=== PATIENT | female | born 1965 | race African-American/Black ===

== ENCOUNTER 2016-12-18 14:06 | Inpatient (IN) | payer OTHER ==
[~2016-12-18 14:06] MED LIST: ACCUNEB SO1.25 MG/1 INH; ALBUTEROL2.5 MG/0.5 INH; ALDACTONE25 MG PO; ATIVAN0.5 MG PO; BACTRIM DS TAB1 EACH PO; BUDESONIDE EC3 MG INH; CARAFATE 1 GM TA1 G1 PO; CARVEDILOL25 MG PO; CITRATE OF MAG296 ML PO; CLARITIN10 MG PO; COLACE100 MG PO; FLEXERIL PO; HUMALOG100 UNIT/2 SUBQ; HYOSCYAMINE0.125 MG PO; IMDUR 30 MG TAB30 M1 PO; JANUVIA100 MG PO; KEFLEX500 MG PO; LASIX 40 MG TAB40 M2 PO; LASIX 80 MG TAB80 MG PO; LEVAQUIN 250 M250 MG PO; LEVAQUIN 500 M500 M2 PO; LEVEMIR SUBQ; LIPITOR 20 MG T20 M1 PO; LISINOPRIL2.5 MG PO; LO-DOSE ASPIRIN81 M1 PO; LYRICA 75 MG CA75 MG PO; METFORMIN HCL500 MG PO; NASAL SPRAY30 ML NS; NEURONTIN600 MG PO; NITROSTAT0.4 M1 SL; NORCO 5-325 TA1 EACH PO; OMEPRAZOLE 20 M20 M1 PO; PAXIL10 MG; PERCOCET 5-3251 EACH PO; PLAVIX 75 MG TA75 M1 PO; POTASSIUM20 PO; PREDNISONE 20 M20 MG PO; PREDNISONE 5 MG5 M1 PO; PROMETHAZINE-C120 ML PO; SPIRIVA INH; TRAZODONE HCL100 MG PO; ZANAFLEX4 M1 PO; ZOCOR20 MG
[2016-12-18 14:35] VITALS: BP 102/72
== END 2016-12-18 16:10 | disposition left against medical advice (07) | DRG 316 ==
LOC: 2N 14:06
DX: I95.9 Hypotension, unspecified (principal); E11.9 Type 2 diabetes mellitus without complications; J44.9 Chronic obstructive pulmonary disease, unspecified; E78.00 Pure hypercholesterolemia, unspecified; I50.9 Heart failure, unspecified; Z53.21 Procedure and treatment not carried out due to patient leaving prior to being seen by health care provider; I11.0 Hypertensive heart disease with heart failure; Z87.891 Personal history of nicotine dependence; Z95.5 Presence of coronary angioplasty implant and graft; Z95.0 Presence of cardiac pacemaker; Z79.899 Other long term (current) drug therapy
CPT/HCPCS: 10081

== ENCOUNTER 2017-01-14 14:44 | Emergency (ER) | payer OTHER ==
[~2017-01-14] VITALS: Ht 170.2 cm; Wt 54.4 kg
[2017-01-14 15:21] LABS: ABSOLUTE NEUTROPHILS 6.9 thou/uL (1.4-8.2); BASOPHILS 0.9 % (0.0-2.0); HEMATOCRIT 35.9 % (37.0-47.0); HEMOGLOBIN 12.2 gm/dL (12.0-15.0); LYMPHOCYTES 35.2 % (24.0-44.0); MCH 32.9 pg (26.0-34.0); MCV 96.8 fL (80.0-100.0); MONOCYTES 5.8 % (1.0-8.0); PLATELET COUNT 207 thou/uL (150-400); POLYS 56.1 % (36.0-66.0); RBC 3.71 mil/uL (4.20-5.00); RDW 13.3 % (10.5-14.5); WBC 12.2 thou/uL (4.0-11.0)
[2017-01-14 15:22] LABS: MANUAL DIFF NO
[2017-01-14 15:33] LABS: ANION GAP 10 mmol/L (7-16); BUN 53 mg/dL (7-18); CALCIUM 10.7 mg/dL (8.5-10.1); CHLORIDE 102 mmol/L (98-107); CO2 25 mmol/L (21-32); CREATININE 1.9 mg/dL (0.6-1.0); GLUCOSE 120 mg/dL (74-106); POTASSIUM 4.4 mmol/L (3.5-5.1); SODIUM 137 mmol/L (136-145)
[2017-01-14 15:37] LABS: ALBUMIN 4.1 g/dL (3.4-5.0); ALKALINE PHOSPHATASE 65 U/L (46-116); DIRECT BILIRUBIN < 0.1 mg/dL (<0.1-0.3); SGOT 15 U/L (15-37); SGPT 25 U/L (30-65); TOTAL BILIRUBIN 0.4 mg/dL (<0.1-1.0); TOTAL PROTEIN 8.5 g/dL (6.4-8.2)
[2017-01-14 17:34] LABS: URINE BILIRUBIN NEGATIVE (Negative); URINE BLOOD NEGATIVE (Negative); URINE COLOR YELLOW; URINE GLUCOSE-RANDOM* NEGATIVE (Negative); URINE KETONES NEGATIVE (Negative); URINE NITRITE NEGATIVE (Negative); URINE PROTEIN (DIPSTICK) NEGATIVE (Negative); URINE UROBILINOGEN 0.2 E.U./dl (0.2-1.0)
[2017-01-14] MEDS ORDERED: PROMETHAZINE/C118 ML PO (17:58)
[2017-01-14] MEDS ORDERED: FLONASE 0.05%50 MCG NASAL (17:58)
== END 2017-01-14 17:10 | disposition home or self-care (01) ==
LOC: ER 14:44
PROVIDERS: Emergency Medicine
DX: R53.83 Other fatigue (principal); I13.0 Hypertensive heart and chronic kidney disease with heart failure and stage 1 through stage 4 chronic kidney disease, or unspecified chronic kidney disease; E11.22 Type 2 diabetes mellitus with diabetic chronic kidney disease; N18.9 Chronic kidney disease, unspecified; I50.9 Heart failure, unspecified; J44.9 Chronic obstructive pulmonary disease, unspecified; Z79.4 Long term (current) use of insulin; Z95.5 Presence of coronary angioplasty implant and graft; Z95.0 Presence of cardiac pacemaker; Z87.891 Personal history of nicotine dependence

== ENCOUNTER 2017-02-07 11:23 | Emergency (ER) | payer OTHER ==
[~2017-02-07] VITALS: Ht 157.5 cm; Wt 79.4 kg
--- NOTE | ~2017-02-07 | EKG ---
[place] [address] [facility] [place] [address] ELECTROCARDIOGRAM REPORT Name: SANDRA SERRANO [facility] [id number] Admission: 02/07/17 Attend Phys: Discharge: 02/07/17 Date of : 61 Report #: [id number] THIS REPORT FOR: //name// [facility] ED Test Date: 2017-02-07 Test Time: 12:51:20 Pat Name: SANDRA SERRANO Department: Room: Gender: F Secretary To Board Of Commissioners: [id number] : 1965 Requested By: Yuki Zacarias Order Number: [id number] MD: Brian Contreras Measurements Intervals [facility] Rate: 90 P: 61 FL: 161 QRS: -28 QRSD: 95 T: 64 QT: 374 QTc: 458 Interpretive Statements Sinus rhythm Borderline left axis deviation Poor R wave progression No previous for comparison Electronically Signed On 02-08-2017 8:30:44 CDT by Brian Contreras [email or web address] <ELECTRONICALLY SIGNED> By: Brian Contreras MD, [facility] 02/08/17 0830 1251 1251 Brian Contreras MD, FACC /EPI
[~2017-02-07 11:23] MED LIST changes: +FLONASE 0.05%50 MCG NASAL; +PROMETHAZINE/C118 ML PO
[2017-02-07 12:24] LABS: ABSOLUTE NEUTROPHILS 6.9 thou/uL (1.4-8.2); BASOPHILS 1.1 % (0.0-2.0); EOSINOPHILS 1.9 % (0.0-3.0); HEMATOCRIT 36.4 % (37.0-47.0); HEMOGLOBIN 12.2 gm/dL (12.0-15.0); LYMPHOCYTES 30.4 % (24.0-44.0); MCH 32.8 pg (26.0-34.0); MCHC 33.6 g/dL (28.0-37.0); MCV 97.5 fL (80.0-100.0); MONOCYTES 6.3 % (1.0-8.0); PLATELET COUNT 212 thou/uL (150-400); POLYS 60.3 % (36.0-66.0); RBC 3.74 mil/uL (4.20-5.00); RDW 13.5 % (10.5-14.5); WBC 11.4 thou/uL (4.0-11.0)
[2017-02-07 12:25] LABS: MANUAL DIFF NO
[2017-02-07 12:28] LABS: CALCIUM 10.7 mg/dL (8.5-10.1); POTASSIUM 4.6 mmol/L (3.5-5.1)
[2017-02-07 12:48] LABS: URINE BILIRUBIN NEGATIVE (Negative); URINE BLOOD NEGATIVE (Negative); URINE COLOR YELLOW; URINE GLUCOSE-RANDOM* NEGATIVE (Negative); URINE KETONES NEGATIVE (Negative); URINE LEUKOCYTES-REFLEX NEGATIVE (Negative); URINE PROTEIN (DIPSTICK) NEGATIVE (Negative); URINE UROBILINOGEN 0.2 E.U./dl (0.2-1.0)
[2017-02-07] MEDS ORDERED: PROMETHAZINE-C120 ML PO (15:25)
== END 2017-02-07 15:32 | disposition home or self-care (01) ==
LOC: ER 11:23
PROVIDERS: Emergency Medicine
DX: I95.9 Hypotension, unspecified (principal); E86.0 Dehydration; I11.0 Hypertensive heart disease with heart failure; I50.9 Heart failure, unspecified; J44.9 Chronic obstructive pulmonary disease, unspecified; E11.9 Type 2 diabetes mellitus without complications; E78.00 Pure hypercholesterolemia, unspecified; Z95.0 Presence of cardiac pacemaker; Z95.5 Presence of coronary angioplasty implant and graft; Z87.891 Personal history of nicotine dependence; Z79.82 Long term (current) use of aspirin

== ENCOUNTER 2017-05-14 12:33 | Emergency (ER) | payer OTHER ==
[~2017-05-14] VITALS: Ht 157.5 cm; Wt 80.7 kg
[2017-05-14] MEDS ORDERED: NORCO 5-325 TA1 EACH PO (13:38)
== END 2017-05-14 13:59 | disposition home or self-care (01) ==
LOC: ER 12:33
DX: M25.551 Pain in right hip (principal); I10 Essential (primary) hypertension; J44.9 Chronic obstructive pulmonary disease, unspecified; I50.9 Heart failure, unspecified; K31.84 Gastroparesis; Z87.891 Personal history of nicotine dependence; Z95.0 Presence of cardiac pacemaker

== ENCOUNTER 2017-06-13 16:39 | Emergency (ER) | payer OTHER ==
[~2017-06-13] VITALS: Ht 157.5 cm; Wt 78.9 kg
[~2017-06-13 16:39] MED LIST changes: -BUDESONIDE EC3 MG INH; +GLUCOPHAGE1000 MG PO; +SYMBICORT160 MCG/4. INH
[2017-06-13] MEDS ORDERED: BACTROBAN CREAM30 G1 TOP (16:55)
[2017-06-13] MEDS ORDERED: NORCO 5-325 TA1 EACH PO (16:55)
[2017-06-13] MEDS ORDERED: CORTISPORIN OTI10 M2 OTIC (16:55)
== END 2017-06-13 17:01 | disposition home or self-care (01) ==
LOC: ER 16:39
DX: H60.90 Unspecified otitis externa, unspecified ear (principal); H66.90 Otitis media, unspecified, unspecified ear; Z87.891 Personal history of nicotine dependence; Z95.0 Presence of cardiac pacemaker; Z95.5 Presence of coronary angioplasty implant and graft

== ENCOUNTER 2017-09-01 08:14 | Emergency (ER) | payer OTHER ==
[~2017-09-01] VITALS: Ht 157.5 cm; Wt 79.4 kg
[~2017-09-01 08:14] MED LIST changes: -ALDACTONE25 MG PO; +BACTROBAN CREAM30 G1 TOP; +CORTISPORIN OTI10 M2 OTIC; +SPIRONOLACTONE25 MG PO
[2017-09-01] MEDS ORDERED: OSELB75 PO (09:12)
[2017-09-01] MEDS ORDERED: TESSALON PERLE100 MG PO ×2 (09:12→09:13)
[2017-09-01 09:35] VITALS: BP 111/70
[2018-04-10] MEDS ORDERED: ENDOCET 10-3251 EACH PO (11:51)
[2018-04-10] MEDS ORDERED: ENTRESTO 49 MG1 EACH PO (11:52)
[2018-04-10] MEDS ORDERED: TRESIBA FL200 UNIT/1 SUBQ (11:56)
[2018-04-10] MEDS ORDERED: GABAPENTIN800 M1 PO (11:57)
[2018-04-10] MEDS ORDERED: PROAIR HFA8.5 GM INH (15:29)
[2018-04-10] MEDS ORDERED: PLAVIX 75 MG TA75 M1 PO (15:30)
[2018-04-10] MEDS ORDERED: FLEXERIL PO (15:31)
[2018-04-10] MEDS ORDERED: LASIX 80 MG TAB80 MG PO (15:31)
[2018-04-10] MEDS ORDERED: MECLIZINE HCL12.5 MG PO (15:33)
== END 2017-09-01 09:35 | disposition home or self-care (01) ==
LOC: ER 08:14
DX: J11.1 Influenza due to unidentified influenza virus with other respiratory manifestations (principal); J44.9 Chronic obstructive pulmonary disease, unspecified; Z87.891 Personal history of nicotine dependence; Z95.0 Presence of cardiac pacemaker

== ENCOUNTER → 2018-04-14 | Outpatient (CLI) | payer OTHER ==
[~2018-04-14] VITALS: Ht 157.5 cm; Wt 81.6 kg
[~2018-04-14] MED LIST changes: +ENDOCET 10-3251 EACH PO; +ENTRESTO 49 MG1 EACH PO; +GABAPENTIN800 M1 PO; +MECLIZINE HCL12.5 MG PO; +OSELB75 PO; +PROAIR HFA8.5 GM INH; +TESSALON PERLE100 MG PO; +TRESIBA FL200 UNIT/1 SUBQ
--- NOTE | ~2018-04-14 | EKG ---
[address] [address] ELECTROCARDIOGRAM REPORT Name: SANDRA SERRANO [id number] Admission: 04/14/18 Attend Phys: Cam Renteria MD Discharge: Date of : 61 Report #: [id number] THIS REPORT FOR: //name// [facility] Test Date: 2018-04-14 Test Time: 14:52:40 Pat Name: SANDRA SERRANO Department: Room: Gender: F Clinical Biostatistician: RHONDA : 1965 Requested By: Lilo Ghotra Order Number: [id number] MD: Romario Soliz Measurements Intervals [place] Rate: 108 P: 69 [place]: 151 QRS: -29 QRSD: 88 T: 63 QT: 350 QTc: 469 Interpretive Statements Sinus tachycardia Probable left atrial enlargement Borderline left axis deviation Low voltage, precordial leads Electronically Signed On 04-14-2018 15:08:23 CDT by Romario Soliz [email or web address] <ELECTRONICALLY SIGNED> By: Romario Soliz MD 04/14/18 1508 1452 51 Romario Soliz MD /CYRIL
--- NOTE | ~2018-04-14 | PATH ---
[facility] [address] [place] [address] PATHOLOGY RPT PROCEDURE Name: SANDRA SERRANO Room #: REG CL MVannessa.#: [id number] Admission: 04/14/18 Date of : 61 Discharge: Report #: [id number] Path Case #: [id number] LCA Accession Number: [id number] . 01 Material submitted: . POLYP AT RECTUM . 01 Clinical history: . Pre-OP DX: Screening Post-OP DX: Rectal polyp, diverticulosis, interior hemorrhoid . 02 Diagnosis: Polyp, at rectum, endoscopic biopsy: - Hyperplastic polyp. - Negative for dysplasia. (IUV:zane; 04/15/2018) QMS/04/15/2018 . 02 Electronically signed: . Porsha Unger MD, Pathologist NPI- [id number] . 01 Gross description: . Received in formalin labeled "Donato, Sandra, polyp rectum," is a single segment of hernandez soft tissue measuring 0.3 cm in maximum dimension. The specimen is entirely submitted in cassette A1. (TSD; 04/14/2018) TOB/TOB . 02 Pathologist provided ICD-10: K62.1 . 02 CPT . 209245 Specimen Comment: A courtesy copy of this report has been sent to Specimen Comment: [phone], . Specimen Comment: Report sent to and Performed at: [address], [place] [id number] MD Derick Becerra MD Phone: [phone] Performed at: [address] [id number] MD Porsha Unger MD Phone: [phone]
== END | disposition home or self-care (01) ==
LOC: GI 14:18
DX: Z12.11 Encounter for screening for malignant neoplasm of colon (principal); K62.1 Rectal polyp; K57.30 Diverticulosis of large intestine without perforation or abscess without bleeding; K64.8 Other hemorrhoids; I11.0 Hypertensive heart disease with heart failure; I50.9 Heart failure, unspecified; I42.9 Cardiomyopathy, unspecified; E11.9 Type 2 diabetes mellitus without complications; J43.9 Emphysema, unspecified; E78.00 Pure hypercholesterolemia, unspecified; G47.33 Obstructive sleep apnea (adult) (pediatric); Z98.890 Other specified postprocedural states; Z95.5 Presence of coronary angioplasty implant and graft; Z95.810 Presence of automatic (implantable) cardiac defibrillator; Z79.899 Other long term (current) drug therapy; Z87.891 Personal history of nicotine dependence; Z79.4 Long term (current) use of insulin
CPT/HCPCS: 62110; 62900

== ENCOUNTER → 2018-07-25 | Outpatient (CLI) | payer OTHER | LOC: CAT 10:28 | DX: M47.22 Other spondylosis with radiculopathy, cervical region (principal); M47.816 Spondylosis without myelopathy or radiculopathy, lumbar region; M50.122 Cervical disc disorder at C5-C6 level with radiculopathy; M51.26 Other intervertebral disc displacement, lumbar region; M48.02 Spinal stenosis, cervical region; D17.79 Benign lipomatous neoplasm of other sites ==

== ENCOUNTER 2018-10-17 19:16 | Emergency (ER) | payer OTHER ==
[~2018-10-17] VITALS: Ht 157.5 cm; Wt 78.9 kg
[2018-10-17] MEDS ORDERED: BACTRIM DS TAB1 EACH PO (20:31)
[2018-10-17] MEDS ORDERED: HIBICLENS118 ML TOP (20:31)
[2018-10-17 20:41] VITALS: BP 103/70
== END 2018-10-17 20:43 | disposition home or self-care (01) ==
LOC: ER 19:16
DX: L02.214 Cutaneous abscess of groin (principal); L73.2 Hidradenitis suppurativa; I11.0 Hypertensive heart disease with heart failure; I50.9 Heart failure, unspecified; E11.9 Type 2 diabetes mellitus without complications; J44.9 Chronic obstructive pulmonary disease, unspecified; E78.00 Pure hypercholesterolemia, unspecified; G47.30 Sleep apnea, unspecified; Z95.5 Presence of coronary angioplasty implant and graft; Z98.890 Other specified postprocedural states; Z87.891 Personal history of nicotine dependence; Z79.4 Long term (current) use of insulin

== ENCOUNTER → 2018-12-19 | Outpatient (CLI) | payer OTHER ==
[~2018-12-19] VITALS: Ht 157.5 cm; Wt 78.5 kg
[~2018-12-19] MED LIST changes: +HIBICLENS118 ML TOP; +SPIRONOLACTONE25 M1 PO; +TORSEMIDE100 MG PO; +XULTOPHY 100 UNI3 ML SUBQ
[2018-12-19 10:06] LABS: HEMATOCRIT 37.5 % (37.0-47.0); HEMOGLOBIN 12.8 gm/dL (12.0-15.0); MCH 32.7 pg (26.0-34.0); MCHC 34.1 g/dL (28.0-37.0); MCV 96.1 fL (80.0-100.0); RBC 3.9 mil/uL (4.20-5.00); RDW 13.2 % (10.5-14.5); WBC 8.3 thou/uL (4.0-11.0)
[2018-12-19 10:13] LABS: CALCIUM 11.1 mg/dL (8.5-10.1); CREATININE 1.3 mg/dL (0.6-1.0); POTASSIUM 4.4 mmol/L (3.5-5.1)
[2018-12-19 10:20] VITALS: BP 97/72
--- NOTE | 2018-12-19 13:23 | NUR ---
RECEIVED PT FROM MAIL HANDLER EQUIPMENT OPERATOR, DRESSING LEFT CHEST CLEAN DRY INTACT. NO BLEEDING OR HEMATOMA. PT FULLY ALERT AND AWAKE. VSS. NSR ON MONITOR
--- NOTE | 2018-12-19 14:22 | NUR ---
PT ATE LUNCH, FULLY ALERT ABLE TO AMBULATE WITH STEADY GAIT
--- NOTE | 2019-01-02 02:04 | CATHLAB ---
[facility] [address] [place] [address] INVASIVE PROCEDURE REPORT Name: SANDRA SERRANO Room #: REG CL [facility]#: [id number] ������������� Admission: 12/19/18 ������������� Attend Phys: Joe Leger Discharge: ��� ������������� ��� Date of : 61 Date of Service: 01/02/19 0203 �� Report #: [id number] �������� ��������������������������������������������[id number] THIS REPORT FOR: //name// APPROVED REPORT Study performed: 12/19/2018 11:29:20 Event Personnel: , Lilo Malik RN RN, Linh Salazar RN RN, Gilma Izaguirre RTR, DACIA Trammell, Tristan Cerna Monitor Exam: Generator Change for a Dual Chamber Permanent Pacemaker Indications: End of life The patient is a 53 year-old female with a history of cardiomyopathy with reduced ejection fraction and optimize medical regimen. Patient Info Last EF%: 25 Date: Intraoperative Conscious Sedation Fentanyl 100 mcg Versed 4 mg Implanted Devices: ICD- [id number] EVERA MRI S OUS/US DF1: Model #-[id number]; Serial #-[id number] Explanted Devices: ICD [id number] PROTECTA DEVIN GOODMAN US MR: Product #=[id number]; Serial #-[id number] Procedure After explaining the risks, benefits, and alternative options, informed consent was obtained from the patient. The patient was brought to the cardiac catheterization lab and the left chest and shoulder were prepped and draped in the usual fashion. Following institution of sedation and oximetric and elective cardiographic monitoring during the procedure local anesthetic was instilled. His lidocaine without epinephrine. This was instilled along the proposed incision site and subsequently a incision was carried forth. Using sharp and blunt dissection the generator capsule was identified and subsequently the device was delivered. Leads were exchanged with a new device. Pocket was irrigated as was the device and the chest. It was then placed in position and closure ensued in 3 layers with the deep 2 layers being nonabsorbable running locking stitch and the skin closed with non-absorbable 3-0 subcut[address] stitch. [address] [address] INVASIVE PROCEDURE REPORT Name: SANDRA SERRANO Room #: REG [facility]#: [id number] ������������� Admission: 12/19/18 ������������� Attend Phys: Joe Leger Discharge: ��� ������������� ��� Date of : 61 Date of Service: 01/02/19202 �� Report #: [id number] �������� ��������������������������������������������[id number] Complications The patient tolerated the procedure well and there were no complications associated with the procedure. Conclusion 1. Successful generator change involving a dual-chamber ICD Recommendations 1. Routine post generator change protocol ��������������������������������������������� <ELECTRONICALLY SIGNED> ���������������������������������������� By: Joe Root MD ��������������������������������������������� 01/02/19202 2 2 Joe Root MD /INF
--- NOTE | 2019-01-02 02:50 | H ---
[facility] [place] [address] [place] [address] HISTORY AND PHYSICAL Name: SANDRA SERRANO Room #: REG TAE Sridevi#: [id number] Admission: 12/19/18 ������������������ Attend Phys: Joe Root Discharge: ������������������ Date of : 61 Report #: [id number] THIS REPORT FOR: //name// CC: Joe Padron DATE OF SERVICE: 12/19/2018 HISTORY OF PRESENT ILLNESS: This is a very pleasant 53-year-old female patient with history of cardiomyopathy on optimal guideline-directed medical therapy, was evaluated. The patient's ICD has reached ASHLEY and presents now for generator change. She has not had any recent shock from her device, but continues to have decreased ejection fractions on guideline medications. In view of this, she is being admitted for generator change. PAST MEDICAL HISTORY: 1. Hypertension. 2. Cardiomyopathy. 3. Chronic pain syndrome. PHYSICAL EXAMINATION: GENERAL: Well-developed, well-nourished female resting comfortably in no acute distress. HEENT: Normocephalic, atraumatic. Pupils are equal, round, reactive to light and accommodation. Extraocular muscles are intact. Sclerae and conjunctivae are anicteric. NECK: JVD is normal. Carotid upstrokes are bilaterally symmetrical. No bruits are heard. No thyromegaly. No lymphadenopathy. LUNGS: Clear to auscultation. No wheezes, rhonchi or crackles. No CVA tenderness. CARDIAC: Demonstrates a regular rhythm. Normal first and second heart sounds. No ventricular or atrial gallops, no rubs noted. No murmurs. No lifts or heaves, PMI normal. ABDOMEN: Soft, nontender, nondistended. Normal bowel sounds. EXTREMITIES: Without cyanosis, clubbing or edema. Distal pulses are intact. DTR symmetrical. NEUROLOGIC: Cranial nerves 2-12 are grossly normal and symmetrical. PSYCHIATRIC: Alert, oriented with normal affect. SKIN: Warm and dry. IMPRESSION: Cardiomyopathy, on optimal guideline-directed medical therapy with ICD in place at [facility]. In view of this, we are going to proceed with [facility] [address] [place] [address] HISTORY AND PHYSICAL Name: SANDRA SERRANO Room #: REG [facility]#: [id number] Admission: 12/19/18 ������������������ Attend Phys: Joe Root Discharge: ������������������ Date of : 61 Report #: [id number]. The risks, complications and alternatives have been discussed with the patient. She voices understanding and wishes to proceed. ��������������������������������������������� <ELECTRONICALLY SIGNED> ���������������������������������������� By: Joe Root MD ��������������������������������������������� 01/02/19 0250 0215 0246 Joe Root MD /nt
== END | disposition home or self-care (01) ==
LOC: CATH 09:33
PROVIDERS: Internal Medicine
DX: Z45.02 Encounter for adjustment and management of automatic implantable cardiac defibrillator (principal); I42.9 Cardiomyopathy, unspecified; I11.0 Hypertensive heart disease with heart failure; I50.9 Heart failure, unspecified; E11.9 Type 2 diabetes mellitus without complications; J44.9 Chronic obstructive pulmonary disease, unspecified; I25.2 Old myocardial infarction; E78.00 Pure hypercholesterolemia, unspecified; G89.4 Chronic pain syndrome; N28.9 Disorder of kidney and ureter, unspecified; G47.33 Obstructive sleep apnea (adult) (pediatric); E66.09 Other obesity due to excess calories; F17.210 Nicotine dependence, cigarettes, uncomplicated; Z98.890 Other specified postprocedural states; Z95.5 Presence of coronary angioplasty implant and graft; Z82.49 Family history of ischemic heart disease and other diseases of the circulatory system; Z79.4 Long term (current) use of insulin; Z79.899 Other long term (current) drug therapy

== ENCOUNTER → 2019-02-04 | Outpatient (CLI) | payer OTHER ==
--- NOTE | 2019-02-04 11:39 | 2DMMODE ---
[facility] [address] [place] [address] 2 D/M-MODE ECHOCARDIOGRAM Name: SANDRA SERRANO Room #: REG [facility]#: [id number] ������������� Admission: 02/04/19 ������������� Attend Phys: Joe Leger Discharge: ��� ������������� ��� Date of : 61 Date of Service: 02/04/19 1139 �� Report #: [id number] �������� ��������������������������������������������[id number] THIS REPORT FOR: //name// APPROVED REPORT Study performed: 02/04/2019 09:03:05 EXAM: Comprehensive 2D, Doppler, and color-flow Echocardiogram Patient Location: Out-Patient Status: routine BSA: 1.85 HR: 100 bpm BP: 100/70 mmHg Rhythm: Tachycardia Other Information Study Quality: Adequate Indications ISCM, [place], stent, COPD, DM, HTN, ICD. 2D Dimensions RVDd: 35.54 mm IVSd: 9.54 (7-11mm) LVOT Diam: 20.12 (18-24mm) LVDd: 64.10 mm PWd: 9.40 (7-11mm) Ascending Ao: 32.31 (22-36mm) LVDs: 53.46 (25-40mm) Aortic Root: 33.40 mm Volumes Left Atrial Volume (Systole) Single Plane 4CH: 53.12 mL Single Plane 2CH: 43.74 mL Aortic Valve AoV Peak Cesar.: 1.33 m/s AO Peak Gr.: 7.02 mmHg LVOT Max P.06 mmHg LVOT Max V: 1.01 m/s SHAHID Vmax: 2.41 cm2 Pulmonary Valve PV Peak Cesar.: 0.75 m/s PV Peak Gr.: 2.29 mmHg Pulmonary Vein P Vein S: 0.53 m/s P Vein A: 0.27 m/s [facility] [address] [address] 2 D/M-MODE ECHOCARDIOGRAM Name: SANDRA SERRANO Room #: [facility]#: [id number] ������������� Admission: 02/04/19 ������������� Attend Phys: Joe Leger Discharge: ��� ������������� ��� Date of : 61 Date of Service: 02/04/19 1139 �� Report #: [id number] �������� ��������������������������������������������[id number] P Vein D: 0.32 m/s P Vein A Dur.: 58.8 msec P Vein S/D Ratio: 1.66 Tricuspid Valve TR Peak Cesar.: 2.13 m/s RAP Estimate: 5.00 mmHg TR Peak Gr.: 18.15 mmHg PA Pressure: 23.00 mmHg Left Ventricle Left ventricle is moderately dilated. There is normal left ventricular wall thickness. Left ventricular systolic function is severely decreased. LVEF is 20-25%. This study is not technically sufficient to allow evaluation of the LV diastolic function. Right Ventricle The right ventricle is normal size. The right ventricular systolic function is normal. Pacemaker lead is present in the right ventricle. Atria Left atrium is dilated. The right atrium size is normal. Aortic Valve The aortic valve is normal in structure. No aortic regurgitation is present. There is no aortic valvular stenosis. Mitral Valve The mitral valve is normal in structure. Trace mitral regurgitation. Tricuspid Valve The tricuspid valve is normal in structure. Mild tricuspid regurgitation. Estimated PAP is 30mmHg. Pulmonic Valve The pulmonary valve is normal in structure. Trace pulmonic regurgitation. Great Vessels The aortic root is normal in size. The ascending aorta is normal in size. IVC is normal in size and collapses >50% with inspiration. Pericardium There is no pericardial effusion. <Conclusion> [facility] [address] [place] [address] 2 D/M-MODE ECHOCARDIOGRAM Name: SANDRA SERRANO Room #: REG [facility].#: [id number] ������������� Admission: 02/04/19 ������������� Attend Phys: Joe Leger Discharge: ��� ������������� ��� Date of : 61 Date of Service: 02/04/19 1139 �� Report #: [id number] �������� ��������������������������������������������[id number] Left ventricle is moderately dilated. LVEF is 20-25%. The right ventricle is normal size. The right ventricular systolic function is normal. Pacemaker lead is present in the right ventricle. Left atrium is dilated. The aortic valve is normal in structure. The mitral valve is normal in structure. Trace mitral regurgitation. The tricuspid valve is normal in structure. Mild tricuspid regurgitation. Estimated PAP is 30mmHg. The pulmonary valve is normal in structure. Trace pulmonic regurgitation. There is no pericardial effusion. ��������������������������������������������� <ELECTRONICALLY SIGNED> ���������������������������������������� By: Joe Root MD ��������������������������������������������� 02/04/19 1139 1139 1139 Joe Root MD /INF
== END ==
LOC: CV 01-27 07:49
DX: I07.1 Rheumatic tricuspid insufficiency (principal); I11.0 Hypertensive heart disease with heart failure; I50.20 Unspecified systolic (congestive) heart failure; E11.9 Type 2 diabetes mellitus without complications; J44.9 Chronic obstructive pulmonary disease, unspecified; I25.5 Ischemic cardiomyopathy; I25.2 Old myocardial infarction; Z95.810 Presence of automatic (implantable) cardiac defibrillator; Z95.5 Presence of coronary angioplasty implant and graft

== ENCOUNTER → 2019-02-10 | Outpatient (CLI) | payer OTHER | LOC: NUC 06:47 | DX: E83.52 Hypercalcemia (principal); E83.39 Other disorders of phosphorus metabolism; I12.9 Hypertensive chronic kidney disease with stage 1 through stage 4 chronic kidney disease, or unspecified chronic kidney disease; N18.3 Chronic kidney disease, stage 3 (moderate) ==

== ENCOUNTER 2019-03-29 02:25 | Emergency (ER) | payer OTHER ==
[~2019-03-29] VITALS: Ht 160 cm; Wt 75.8 kg
[2019-03-29 02:26] VITALS: BP 133/90
== END 2019-03-29 02:53 | disposition home or self-care (01) ==
LOC: ER 02:25
DX: M79.601 Pain in right arm (principal); E11.9 Type 2 diabetes mellitus without complications; J44.9 Chronic obstructive pulmonary disease, unspecified; G47.30 Sleep apnea, unspecified; I42.9 Cardiomyopathy, unspecified; I50.9 Heart failure, unspecified; I11.0 Hypertensive heart disease with heart failure; Z95.0 Presence of cardiac pacemaker; Z98.890 Other specified postprocedural states; Z87.891 Personal history of nicotine dependence

== ENCOUNTER → 2019-08-03 | Outpatient (CLI) | payer OTHER | LOC: SJCVC 13:02 | DX: Z01.810 Encounter for preprocedural cardiovascular examination (principal); I42.9 Cardiomyopathy, unspecified; I50.20 Unspecified systolic (congestive) heart failure; D49.7 Neoplasm of unspecified behavior of endocrine glands and other parts of nervous system; J44.9 Chronic obstructive pulmonary disease, unspecified; E11.9 Type 2 diabetes mellitus without complications; I25.10 Atherosclerotic heart disease of native coronary artery without angina pectoris; E66.9 Obesity, unspecified; I73.9 Peripheral vascular disease, unspecified; Z95.0 Presence of cardiac pacemaker; Z79.84 Long term (current) use of oral hypoglycemic drugs; Z79.899 Other long term (current) drug therapy ==

== ENCOUNTER → 2019-08-11 | Outpatient (CLI) | payer OTHER | LOC: SJCVC 08-05 14:53 → SJCVCIMAG 08:44 | DX: Z01.818 Encounter for other preprocedural examination (principal); I25.5 Ischemic cardiomyopathy; I42.9 Cardiomyopathy, unspecified; I50.9 Heart failure, unspecified; E78.00 Pure hypercholesterolemia, unspecified; E11.9 Type 2 diabetes mellitus without complications; Z79.4 Long term (current) use of insulin; Z95.0 Presence of cardiac pacemaker ==

== ENCOUNTER → 2019-10-30 | Outpatient (CLI) | payer OTHER | LOC: CAT 09:27 | DX: M51.26 Other intervertebral disc displacement, lumbar region (principal); M48.061 Spinal stenosis, lumbar region without neurogenic claudication; M54.12 Radiculopathy, cervical region ==

== ENCOUNTER → 2019-11-17 | Outpatient (CLI) | payer OTHER ==
[~2019-11-17] VITALS: Ht 160 cm; Wt 75.8 kg
[~2019-11-17] MED LIST changes: +ASA81BEC PO; +COREG6.25 MG PO; +NEURONTIN300 MG PO; +PERCOCET 7.5-31 EACH PO
--- NOTE | 2019-11-18 17:07 | PATH ---
[facility] [address] [place] [address] PATHOLOGY RPT PROCEDURE Name: SANDRA SEWELL Room #: REG Seferino M.R.#: [id number] Admission: 11/17/19 Date of : 61 Discharge: Report #: [id number] Path Case #: [id number] LCA Accession Number: [id number] . 01 Material submitted: . PART A: stomach - BIOPSY ANTRUM R/O H. PYLORI PART B: esophagus - BIOPSY DISTAL ESOPHAGEAL STRICTURE. Modifiers: distal . 01 Clinical history: . Abd cramping, GERD . 02 Diagnosis: A. Stomach "antrum", endoscopic biopsy: - Gastric oxyntic mucosa with mild chronic gastritis and focal superficial hemosiderin deposition. - Negative for interstitial metaplasia, dysplasia, and malignancy. - NEGATIVE for Helicobacter pylori. . B. Esophagus "distal esophageal stricture", endoscopic biopsy: - Esophageal squamous and gastric cardia mucosa with features of chronic esophagitis. - Negative for intestinal metaplasia, dysplasia, and malignancy. . (TAD:jaydon; 11/18/2019) MBR 11/18/2019 1655 Local . 02 Electronically signed: . Alia Martin MD, Pathologist NPI- [id number] . 01 Gross description: . A. The specimen is received in formalin labeled "Sandra Sewell, BX of antrum" and consists of a 2 fragments of pink-hernandez tissue measuring 0.6 x 0.3 x 0.3 cm in aggregate which are entirely submitted in A1. . B. The specimen is received in formalin labeled "Donato Sandra, BX distal esophageal stricture" and consists of a friable fragment of white-hernandez tissue measuring 0.6 x 0.3 x 0.3 cm which is entirely submitted in B1. (EFRAÍN; 11/17/2019) JFQ/JFQ 11/17/2019 1459 Local . 02 Microscopic: . Immunohistochemical stain results: . Helicobacter pylori (block A1) - negative for organisms. (TAD:jaydon; 11/18/2019) [address] [address] PATHOLOGY RPT PROCEDURE Name: SANDRA SEWELL MARCELA Room #: REG CLSeferino Ascencio.Mallorie.#: [id number] Admission: 11/17/19 Date of : 61 Discharge: Report #: [id number] Path Case #: [id number] . 02 Pathologist provided ICD-10: K29.50, K21.9 . 02 CPT . 093900, 185148, R01696 Specimen Comment: A courtesy copy of this report has been sent to [phone], [phone] Specimen Comment: [phone] Specimen Comment: Report sent to / DR ATKINS Performed at: 01 [facility] [address] [place] [id number] MD Derick Becerra MD Phone: [phone] Performed at: 02 [facility] [address] [place] [id number] MD Sage Prieto MD Phone: [phone]
== END | disposition home or self-care (01) ==
LOC: GI 08:00
DX: R13.10 Dysphagia, unspecified (principal); K31.84 Gastroparesis; K22.2 Esophageal obstruction; K29.50 Unspecified chronic gastritis without bleeding; K21.0 Gastro-esophageal reflux disease with esophagitis; K44.9 Diaphragmatic hernia without obstruction or gangrene; K21.9 Gastro-esophageal reflux disease without esophagitis; I11.0 Hypertensive heart disease with heart failure; I50.9 Heart failure, unspecified; E11.9 Type 2 diabetes mellitus without complications; E78.00 Pure hypercholesterolemia, unspecified; I25.10 Atherosclerotic heart disease of native coronary artery without angina pectoris; Z98.890 Other specified postprocedural states; Z79.899 Other long term (current) drug therapy; Z95.810 Presence of automatic (implantable) cardiac defibrillator
CPT/HCPCS: 62110; 62900

== ENCOUNTER → 2020-01-21 | Outpatient (CLI) | payer OTHER | LOC: SJCVC 10:43 | DX: R94.31 Abnormal electrocardiogram [ECG] [EKG] (principal); I42.9 Cardiomyopathy, unspecified; I50.20 Unspecified systolic (congestive) heart failure; E78.5 Hyperlipidemia, unspecified; E11.9 Type 2 diabetes mellitus without complications; J44.9 Chronic obstructive pulmonary disease, unspecified; E66.9 Obesity, unspecified; F17.210 Nicotine dependence, cigarettes, uncomplicated; Z79.4 Long term (current) use of insulin; Z79.899 Other long term (current) drug therapy; Z82.49 Family history of ischemic heart disease and other diseases of the circulatory system ==

== ENCOUNTER 2020-01-22 22:16 | Emergency (ER) | payer OTHER ==
[~2020-01-22] VITALS: Ht 157.5 cm; Wt 71.7 kg
[2020-01-23] MEDS ORDERED: PENICILLIN V P500 MG PO (00:24)
[2020-01-23] MEDS ORDERED: NORCO 5-325 TA1 EAC2 PO (00:24)
[2020-01-23 00:34] VITALS: BP 110/73
== END 2020-01-23 00:36 | disposition home or self-care (01) ==
LOC: ER 22:16
DX: K04.7 Periapical abscess without sinus (principal); E11.9 Type 2 diabetes mellitus without complications; J44.9 Chronic obstructive pulmonary disease, unspecified; E78.00 Pure hypercholesterolemia, unspecified; I11.0 Hypertensive heart disease with heart failure; I50.9 Heart failure, unspecified; Z87.891 Personal history of nicotine dependence; Z79.899 Other long term (current) drug therapy; Z79.82 Long term (current) use of aspirin; Z79.4 Long term (current) use of insulin; Z95.5 Presence of coronary angioplasty implant and graft; Z98.890 Other specified postprocedural states

== ENCOUNTER → 2020-02-02 | Outpatient (CLI) | payer OTHER ==
[~2020-02-02] MED LIST changes: +NORCO 5-325 TA1 EAC2 PO; +PENICILLIN V P500 MG PO
== END ==
LOC: SJCVCIMAG 07:39
PROVIDERS: ATTEND Internal Medicine
DX: I42.9 Cardiomyopathy, unspecified (principal); E78.5 Hyperlipidemia, unspecified; E11.9 Type 2 diabetes mellitus without complications; I50.20 Unspecified systolic (congestive) heart failure; E66.9 Obesity, unspecified; K21.9 Gastro-esophageal reflux disease without esophagitis; F17.210 Nicotine dependence, cigarettes, uncomplicated; Z79.899 Other long term (current) drug therapy

== ENCOUNTER → 2020-03-18 | Outpatient (CLI) | payer OTHER ==
[~2020-03-18] VITALS: Ht 157.5 cm; Wt 76.2 kg
[~2020-03-18] MED LIST changes: +INVOKANA100 MG PO; +LEVEMIR FL100 UNIT/2 SUBQ; +LEXAPRO 10 MG T10 M1 PO; +NITROGLYCERIN0.4 MG SUBLING; +PLAVIX 75 MG TA75 MG PO; +PRILOSEC OTC20 MG PO; +VALIUM5 MG PO
[2020-03-18 09:57] VITALS: BP 117/74
[2020-03-18 10:07] LABS: HEMATOCRIT 40.7 % (37.0-47.0); MCH 33.4 pg (26.0-34.0); MCHC 34.4 g/dL (28.0-37.0); MCV 96.8 fL (80.0-100.0); RBC 4.21 mil/uL (4.20-5.00); WBC 12.5 thou/uL (4.0-11.0)
--- NOTE | 2020-03-18 10:16 | EKG ---
[facility] [place] [address] [place] [address] ELECTROCARDIOGRAM REPORT Name: SANDRA SERRANO [facility] #[facility] [id number] Admission: 03/18/20 Attend Phys: Joe Root Discharge: Date of : 61 Report #: [id number] THIS REPORT FOR: cc: Scar Padron,Shreyas Cruz MD [facility] ~ THIS REPORT FOR: //name// [facility] Test Date: 2020-03-18 Test Time: 09:45:13 Pat Name: SANDRA SERRANO Department: Room: Gender: F Comb Winder: ARMEN : 1965 Requested By: Joe Roto Order Number: [id number] MD: Shreyas Mohamud Measurements Intervals [place] Rate: 92 P: 64 FL: 150 QRS: -33 QRSD: 90 T: 46 QT: 343 QTc: 425 Interpretive Statements Sinus rhythm Abnormal R-wave progression, late transition Left ventricular hypertrophy Minimal J Point elevation, lateral leads Baseline wander in lead(s) V4,V5 Compared to ECG 04/14/2018 14:52:40 Left ventricular hypertrophy now present ST (T wave) deviation now present Sinus tachycardia no longer present Electronically Signed On 03-18-2020 10:16:31 CDT by Shreyas Mohamud [email or web address] <ELECTRONICALLY SIGNED> By: Shreyas Mohamud MD, [facility] 03/18/20 1016 4 4 Shreyas Mohamud MD, [facility] /EPI
[2020-03-18 10:23] LABS: CREATININE 1.8 mg/dL (0.6-1.0)
[2020-03-18 10:24] LABS: CALCIUM 12.2 mg/dL (8.5-10.1)
--- NOTE | 2020-03-30 16:05 | CATHLAB ---
[facility] [place] [address] [place] [address] INVASIVE PROCEDURE REPORT Name: SANDRA SERRANO Room #: REG TAE aMrkMallorieIsabella#: [id number] Admission: 03/18/20 Attend Phys: Joe Root Discharge: Date of : 61 Report #: [id number] THIS REPORT FOR: cc: Scar Padron James A. DO Lammoglia, Francisco J. MD ~ APPROVED REPORT Study performed: 03/18/2020 10:50:59 Patient Details Patient Status: Out-Patient Room #: The patient is a 54 year-old female Event Personnel Joe Root Broom Worker, Gilma Izaguirre RTR, INTERNET WEBMASTER Monitor, Miguel Cordoba RN RN, Sarbjit Irizarry RN RN, Yemi Jones RTR Scrub Procedures Performed Art Access - R femoral artery* Left Heart Cath w/or w/o Coronaries 5047743 [facility] FFR 7536632 FFR 61991 Initial Mod Sed Same Phys/QHP Gr5y 984663 25545 Mod Sed Same Phys/QHP Ea 323023 Hemostasis w/ Mynx, supervision of conscious sedation Indication CardiomyopathyPositive stress test Procedure Narrative The Right Groin^ was infiltrated with 1% Lidocaine subcutaneous anesthesia. A PINNACLE 4FR Sheath #[id number] sheath was inserted into the RFA^. Coronary angiography was performed using coronary diagnostic catheters. The right coronary system was accessed and visualized with a JR4 catheter. The left coronary system was accessed and visualized with a JL4 catheter. The left ventricle was accessed and visualized with a JR4 catheter. Left ventricular/Aortic Valve gradient assessed via catheter pullback. Closure device was deployed with a 6 Fr MYNXGRIP 6/7F #[id number]. The patient tolerated the procedure well and there were no complications associated with the procedure. There was no hematoma. Intraoperative Conscious Sedation Sedation start time: 11:28 Case end Time: 12:14 [facility] [address] [place] [address] INVASIVE PROCEDURE REPORT Name: SANDRA SERRANO Room #: REG CL [facility]#: [id number] Admission: 03/18/20 Attend Phys: Joe Leger Discharge: Date of : 61 Report #: [id number] Versed 3 mg Fluoro Time: 7.46 minutes Dose: DAP 6452.40 cGycm2 882 mGy Contrast Type and Amount: Visipaque 100 ml Coronary Angiography The patient's coronary anatomy is right dominant. Diagnostic Cath Left Main Normal origin caliber bifurcates left anterior descending left circumflex. Is free of high-grade disease. Is short in length LAD Moderate caliber type II vessel which courses in the anterior interventricular sulcus. The side of the first diagonal branch and a prior stenting there is an eccentric 50% lesion noted. The lesion does not appear to be flow-limiting. The first diagonal branch arises with only mild proximal irregularity present as it courses on the anterolateral wall. The LAD proper then continues in the anterior interventricular sulcus giving septal diagonal branches and escorts terminates as a small bifurcating vessel at the apex Diagonal 1 Small caliber vessel without significant high-grade lesion Circumflex Moderate caliber vessel which gives rise to a small insignificant first marginal branch. The vessel then continues on giving rise to a moderate second marginal branch that courses on the lateral aspect of the heart but terminating is a bifurcating vessel free of high-grade disease. The circumflex continues posteriorly terminates as a posterior wall branch after giving rise to a small insignificant caliber posterior wall branch prior to the origin. Mild irregularities are present OM1 Small diminutive size vessel without high-grade disease OM2 Small to moderate caliber vessel coursing on the atrial aspect of the ventricle free of high-grade disease OM3 Insignificant diminutive vessel Right Coronary Normal origin moderate caliber and has a mild to moderate irregularities in the proximal course. Then continues on to the crux of the heart rate gives rise to a small to moderate posterior descending artery and terminates a small posterior wall branch. Prior to the or his pulses having artery there is an eccentric appearing lesion disease not more than 50% stenosis visually. R PDA Small to moderate caliber vessel coursing the posterior interventricular sulcus free of high-grade disease [address] [address] INVASIVE PROCEDURE REPORT Name: ZACHSANDRA MARCELA Room #: REG TODD Laureano#: [id number] Admission: 03/18/20 Attend Phys: Joe Leger Discharge: Date of : 61 Report #: [id number] Left Ventriculography Left Ventriculography was not performed. IVUS Fractional Flow Regan was performed on the Proximal right coronary artery vessel. A 6 Spanish JR4 Guide Catheter was used to engage the Right coronary ostium. A FFR wire was used. Hemodynamics The aortic pressure is 119/86 mmHg with a mean of 102 mmHg. The left ventricular pressure is 134/5 mmHg with a mean of mmHg. The left ventricular end diastolic pressure is 24 mmHg. PCI Technique Lesion Percutaneous coronary intervention was performed on the mid right coronary artery. A LAUNCHER 6FR JR 4 #[id number] Guide Catheter was used to engage the ostium. A Aeris Pressure Wire 175 cm [id number] Interventional Guidewire was used to cross the lesion. COMMENTS PRE FFR=1.00 FFR = .93 PCI Technique Lesion The lesion stenosis prior to intervention was Proximal right coronary artery% with WEI 6 Spanish JR4 flow. A Right coronary Guide Catheter was used to engage the ostium. A FFR wire Interventional Guidewire was used to cross the lesion. Conclusion 1. Coronary disease moderate two-vessel 2. Abnormal hemodynamics with elevated low ventricular diastolic pressure 3. Nonsignificant fractional flow reserve of the proximal RCA Recommendations Cardiac Risk Reduction Program Aggressive Medical Therapy <ELECTRONICALLY SIGNED> By: Joe Root MD 03/30/20 1605 1605 1605 Joe Root MD /INF
== END | disposition home or self-care (01) ==
LOC: CATH 09:20
PROVIDERS: ATTEND Internal Medicine
DX: R07.9 Chest pain, unspecified (principal); I25.10 Atherosclerotic heart disease of native coronary artery without angina pectoris; I42.9 Cardiomyopathy, unspecified; I11.0 Hypertensive heart disease with heart failure; I50.30 Unspecified diastolic (congestive) heart failure; E11.9 Type 2 diabetes mellitus without complications; J44.9 Chronic obstructive pulmonary disease, unspecified; G47.30 Sleep apnea, unspecified; I73.9 Peripheral vascular disease, unspecified; E78.00 Pure hypercholesterolemia, unspecified; K21.9 Gastro-esophageal reflux disease without esophagitis; E66.09 Other obesity due to excess calories; F17.210 Nicotine dependence, cigarettes, uncomplicated; Z82.49 Family history of ischemic heart disease and other diseases of the circulatory system; Z95.0 Presence of cardiac pacemaker; Z98.890 Other specified postprocedural states; Z79.899 Other long term (current) drug therapy; Z79.4 Long term (current) use of insulin

== ENCOUNTER 2020-05-17 14:41 | Emergency (ER) | payer OTHER ==
[~2020-05-17] VITALS: Ht 160 cm; Wt 75.8 kg
[2020-05-17 15:36] LABS: ABSOLUTE NEUTROPHILS 5.8 thou/uL (1.4-8.2); BASOPHILS 0.5 % (0.0-2.0); EOSINOPHILS 0.9 % (0.0-3.0); HEMATOCRIT 35.8 % (37.0-47.0); HEMOGLOBIN 12.1 gm/dL (12.0-15.0); MCH 33.2 pg (26.0-34.0); MCHC 33.9 g/dL (28.0-37.0); MCV 97.8 fL (80.0-100.0); PLATELET COUNT 157 thou/uL (150-400); POLYS 68.6 % (36.0-66.0); RBC 3.66 mil/uL (4.20-5.00); RDW 13.9 % (10.5-14.5); WBC 8.5 thou/uL (4.0-11.0)
[2020-05-17 15:42] LABS: ANION GAP 8 mmol/L (7-16); BUN 32 mg/dL (7-18); CALCIUM 10.8 mg/dL (8.5-10.1); CHLORIDE 100 mmol/L (98-107); CO2 27 mmol/L (21-32); CREATININE 1.8 mg/dL (0.6-1.0); GLUCOSE 269 mg/dL (74-106); POTASSIUM 4.6 mmol/L (3.5-5.1); SODIUM 135 mmol/L (136-145)
[2020-05-17 15:53] LABS: ALBUMIN 3.6 g/dL (3.4-5.0); SGOT 16 U/L (15-37); SGPT 24 U/L (30-65); TOTAL BILIRUBIN 0.4 mg/dL (0.2-1.0); TOTAL PROTEIN 8.1 g/dL (6.4-8.2); TROPONIN-I <0.06 ng/mL (<0.06)
--- NOTE | 2020-05-17 16:01 | EKG ---
[facility] [place] [address] ELECTROCARDIOGRAM REPORT Name: SANDRA SERRAON Room #: [facility].#: [id number] Admission: 05/17/20 Attend Phys: Discharge: Date of : 61 Report #: [id number] THIS REPORT FOR: cc: Scar Padron James A. DO Santiago, Patrick MD [facility] ~ THIS REPORT FOR: //name// [facility] ED Test Date: 2020-05-17 Test Time: 14:46:22 Pat Name: SANDRA SERRANO Department: Room: Gender: F Team Otr Truck Driver: MIKE : 1965 Requested By: Jelena Hernandez Order Number: [id number] MD: Shreyas Mohamud Measurements Intervals [place] Rate: 122 P: 75 MT: 164 QRS: -33 QRSD: 87 T: 65 QT: 297 QTc: 423 Interpretive Statements Sinus tachycardia Left axis deviation Low voltage, precordial leads Compared to ECG 03/18/2020 09:45:13 Low QRS voltage now present Sinus rhythm no longer present ST (T wave) deviation no longer present Electronically Signed On 05-17-2020 16:01:22 ADMINISTRATION VICE PRESIDENT by Shreyas Mohamud [email or web address] <ELECTRONICALLY SIGNED> By: Shreyas Mohamud MD, FACC 05/17/20 1601 1446 1446 Shreyas Mohamud MD, FACC /EPI
[2020-05-17 17:35] VITALS: BP 103/60
== END 2020-05-17 17:36 | disposition home or self-care (01) ==
LOC: ER 14:41
PROVIDERS: Student in an Organized Health Care Education/Training Program
DX: U07.1 COVID-19 (principal); E11.9 Type 2 diabetes mellitus without complications; J44.9 Chronic obstructive pulmonary disease, unspecified; I11.0 Hypertensive heart disease with heart failure; I50.9 Heart failure, unspecified; E78.5 Hyperlipidemia, unspecified; Z95.1 Presence of aortocoronary bypass graft; Z79.01 Long term (current) use of anticoagulants; Z79.4 Long term (current) use of insulin; Z79.82 Long term (current) use of aspirin; Z79.899 Other long term (current) drug therapy

== ENCOUNTER → 2020-06-16 | Outpatient (CLI) | payer OTHER | LOC: CAT 10:00 | PROVIDERS: ATTEND Anesthesiology | DX: M47.812 Spondylosis without myelopathy or radiculopathy, cervical region (principal); M47.896 Other spondylosis, lumbar region; M40.46 Postural lordosis, lumbar region; M77.8 Other enthesopathies, not elsewhere classified; M48.02 Spinal stenosis, cervical region; M51.36 Other intervertebral disc degeneration, lumbar region; M48.05 Spinal stenosis, thoracolumbar region; G89.4 Chronic pain syndrome ==

== ENCOUNTER 2020-08-12 21:31 | Emergency (ER) | payer OTHER ==
[~2020-08-12] VITALS: Ht 160 cm; Wt 76.2 kg
[2020-08-12] MEDS ORDERED: HYDROCODON-ACE1 EAC7 PO (22:54)
[2020-08-12] MEDS ORDERED: DOXYCYCLINE 10100 MG PO (22:54)
[2020-08-12 23:22] VITALS: BP 107/75
== END 2020-08-12 23:19 | disposition home or self-care (01) ==
LOC: ER 21:31
DX: L02.31 Cutaneous abscess of buttock (principal); I11.0 Hypertensive heart disease with heart failure; I50.9 Heart failure, unspecified; J44.9 Chronic obstructive pulmonary disease, unspecified; E11.9 Type 2 diabetes mellitus without complications; E78.5 Hyperlipidemia, unspecified; Z95.0 Presence of cardiac pacemaker; Z87.891 Personal history of nicotine dependence; Z79.01 Long term (current) use of anticoagulants; Z79.4 Long term (current) use of insulin; Z79.82 Long term (current) use of aspirin; Z79.899 Other long term (current) drug therapy

== ENCOUNTER 2020-09-14 15:01 | Emergency (ER) | payer MEDICARE, OTHER ==
[~2020-09-14] VITALS: Ht 157.5 cm; Wt 78.0 kg
[~2020-09-14 15:01] MED LIST changes: +DOXYCYCLINE 10100 MG PO; +HYDROCODON-ACE1 EAC7 PO
[2020-09-14 15:08] VITALS: BP 124/80
[2020-09-14 16:12] LABS: HEMATOCRIT 34.9 % (37.0-47.0); HEMOGLOBIN 11.9 gm/dL (12.0-15.0); MCH 33.3 pg (26.0-34.0); MCV 97.8 fL (80.0-100.0); RBC 3.57 mil/uL (4.20-5.00); RDW 14.9 % (10.5-14.5); WBC 10.6 thou/uL (4.0-11.0)
[2020-09-14 16:19] LABS: CALCIUM 10.9 mg/dL (8.5-10.1); CREATININE 1.4 mg/dL (0.6-1.0); POTASSIUM 3.9 mmol/L (3.5-5.1)
[2020-09-14 16:26] LABS: ALBUMIN 3.8 g/dL (3.4-5.0); TOTAL BILIRUBIN 0.5 mg/dL (0.2-1.0); TOTAL PROTEIN 7.9 g/dL (6.4-8.2)
--- NOTE | 2020-09-14 17:45 | EKG ---
[place] [address] [address] [place] [address] ELECTROCARDIOGRAM REPORT Name: SANDRA SERRANO [facility] [id number] Admission: 09/14/20 Attend Phys: Discharge: Date of : 61 Report #: [id number] [facility] ED Test Date: 2020-09-14 Test Time: 15:32:30 Pat Name: SANDRA SERRANO Department: Room: Gender: F Underwriting Clerk: cruz : 1965 Requested By: Mercy Hercules Order Number: [id number] MD: Romario Soliz Measurements Intervals [place] Rate: 99 P: 60 MI: 150 QRS: -36 QRSD: 88 T: 57 QT: 347 QTc: 446 Interpretive Statements Sinus rhythm Probable left atrial enlargement Left ventricular hypertrophy Probable anterior infarct, old Compared to ECG 05/17/2020 14:46:22 Electronically Signed On 09-14-2020 17:44:47 CHIMNEY SUPERVISOR BRICK by Romario Soliz [email or web address] <ELECTRONICALLY SIGNED> By: Romario Soliz MD 09/14/20 1744 1532 1532 Romario Soliz MD /CYRIL
== END 2020-09-14 16:59 | disposition home or self-care (01) ==
LOC: ER 15:01
PROVIDERS: Nurse Practitioner Family
DX: S40.011A Contusion of right shoulder, initial encounter (principal); S20.01XA Contusion of right breast, initial encounter; R55 Syncope and collapse; I11.0 Hypertensive heart disease with heart failure; I50.9 Heart failure, unspecified; E11.9 Type 2 diabetes mellitus without complications; J44.9 Chronic obstructive pulmonary disease, unspecified; E78.5 Hyperlipidemia, unspecified; Z79.2 Long term (current) use of antibiotics; Z79.899 Other long term (current) drug therapy; Z87.891 Personal history of nicotine dependence; Z79.4 Long term (current) use of insulin; W18.39XA Other fall on same level, initial encounter; Y93.89 Activity, other specified; Y92.89 Other specified places as the place of occurrence of the external cause; Y99.8 Other external cause status

== ENCOUNTER → 2020-10-03 | Outpatient (CLI) | payer MEDICARE, OTHER | LOC: SJCVC 09:57 | PROVIDERS: ATTEND Internal Medicine | DX: I25.10 Atherosclerotic heart disease of native coronary artery without angina pectoris (principal) ==

== ENCOUNTER → 2020-11-01 | Outpatient (CLI) | payer MEDICARE, OTHER | LOC: SJCVC 10:18 | PROVIDERS: ATTEND Internal Medicine | DX: I25.10 Atherosclerotic heart disease of native coronary artery without angina pectoris (principal); E11.51 Type 2 diabetes mellitus with diabetic peripheral angiopathy without gangrene; J42 Unspecified chronic bronchitis; G47.33 Obstructive sleep apnea (adult) (pediatric); I42.9 Cardiomyopathy, unspecified; I50.20 Unspecified systolic (congestive) heart failure; I65.23 Occlusion and stenosis of bilateral carotid arteries; R05 Cough; R53.83 Other fatigue; I25.5 Ischemic cardiomyopathy; I11.0 Hypertensive heart disease with heart failure; I50.9 Heart failure, unspecified; J44.9 Chronic obstructive pulmonary disease, unspecified; E78.5 Hyperlipidemia, unspecified; E66.9 Obesity, unspecified; J45.909 Unspecified asthma, uncomplicated; Z79.4 Long term (current) use of insulin; Z79.899 Other long term (current) drug therapy; Z87.891 Personal history of nicotine dependence; Z68.34 Body mass index [BMI] 34.0-34.9, adult; Z95.0 Presence of cardiac pacemaker ==

== ENCOUNTER 2021-01-16 06:45 | Emergency (ER) | payer OTHER ==
[~2021-01-16] VITALS: Ht 157.5 cm; Wt 76.2 kg
[2021-01-16] MEDS ORDERED: CARVEDILOL12.5 MG PO (07:38)
[2021-01-16 07:39] LABS: ABSOLUTE NEUTROPHILS 4.1 thou/uL (1.4-8.2); EOSINOPHILS 2.5 % (0.0-3.0); HEMATOCRIT 34.6 % (37.0-47.0); HEMOGLOBIN 11.6 gm/dL (12.0-15.0); LYMPHOCYTES 37.4 % (24.0-44.0); MCH 33.4 pg (26.0-34.0); MCHC 33.6 g/dL (28.0-37.0); MCV 99.5 fL (80.0-100.0); MONOCYTES 6.1 % (1.0-8.0); PLATELET COUNT 162 thou/uL (150-400); RBC 3.47 mil/uL (4.20-5.00); RDW 13.8 % (10.5-14.5); WBC 7.7 thou/uL (4.0-11.0)
[2021-01-16] MEDS ORDERED: DULOXETINE HCL30 MG PO (07:39)
[2021-01-16] MEDS ORDERED: NEURONTIN 300M300 M2 PO (07:40)
[2021-01-16] MEDS ORDERED: PERCOCET 10-321 EAC1 PO (07:40)
[2021-01-16 07:41] LABS: ANION GAP 7 mmol/L (7-16); BUN 23 mg/dL (7-18); CALCIUM 10.8 mg/dL (8.5-10.1); CHLORIDE 109 mmol/L (98-107); CO2 25 mmol/L (21-32); CREATININE 1.2 mg/dL (0.6-1.0); GLUCOSE 121 mg/dL (74-106); POTASSIUM 4.2 mmol/L (3.5-5.1); SODIUM 141 mmol/L (136-145)
[2021-01-16 07:51] LABS: ALBUMIN 3.2 g/dL (3.4-5.0); LIPASE 55 U/L (73-393); SGOT 44 U/L (15-37); SGPT 96 U/L (14-59); TOTAL BILIRUBIN 0.4 mg/dL (0.2-1.0); TOTAL PROTEIN 6.8 g/dL (6.4-8.2); TROPONIN-I <0.06 ng/mL (<0.06)
--- NOTE | 2021-01-16 09:33 | EKG ---
[place] [address] [facility] [employer] [address] ELECTROCARDIOGRAM REPORT Name: SANDRA SERRANO [facility] [id number] Admission: 01/16/21 Attend Phys: Discharge: Date of : 61 Report #: [id number] [facility] ED Test Date: 2021-01-16 Test Time: 07:07:23 Pat Name: SANDRA SERRANO Department: Room: Gender: F Senior Market Research Analyst: LOIS : 1965 Requested By: Juan Jose Nathan Order Number: [id number] MD: Shreyas Mohamud Measurements Intervals [place] Rate: 101 P: 73 AL: 162 QRS: -34 QRSD: 87 T: 74 QT: 353 QTc: 458 Interpretive Statements Sinus tachycardia Probable left atrial enlargement Left axis deviation Anterior infarct, old Compared to ECG 09/14/2020 15:32:30 Left-axis deviation now present Sinus rhythm no longer present Left ventricular hypertrophy no longer present Myocardial infarct finding still present Electronically Signed On 01-16-2021 9:32:53 CDT by Shreyas Mohamud [email or web address] <ELECTRONICALLY SIGNED> By: Shreyas Mohamud MD, [facility] 01/16/2132 6 6 Shreyas Mohamud MD, [facility] /EPI
[2021-01-16 12:18] VITALS: BP 99/64
== END 2021-01-16 12:18 | disposition home or self-care (01) ==
LOC: ER 06:45
PROVIDERS: Emergency Medicine
DX: I11.0 Hypertensive heart disease with heart failure (principal); I50.9 Heart failure, unspecified; R06.00 Dyspnea, unspecified; E11.9 Type 2 diabetes mellitus without complications; E78.00 Pure hypercholesterolemia, unspecified; I42.9 Cardiomyopathy, unspecified; J44.9 Chronic obstructive pulmonary disease, unspecified; Z79.82 Long term (current) use of aspirin; Z79.4 Long term (current) use of insulin; Z79.891 Long term (current) use of opiate analgesic; Z79.51 Long term (current) use of inhaled steroids; Z79.899 Other long term (current) drug therapy; Z87.891 Personal history of nicotine dependence

== ENCOUNTER → 2021-01-23 | Outpatient (CLI) | payer OTHER ==
[~2021-01-23] MED LIST changes: +CARVEDILOL12.5 MG PO; +DULOXETINE HCL30 MG PO; +NEURONTIN 300M300 M2 PO; +PERCOCET 10-321 EAC1 PO
== END ==
LOC: SJCVC 10:57
PROVIDERS: ATTEND Internal Medicine
DX: I25.5 Ischemic cardiomyopathy (principal); I50.20 Unspecified systolic (congestive) heart failure; J42 Unspecified chronic bronchitis; I11.0 Hypertensive heart disease with heart failure; E66.9 Obesity, unspecified; G47.33 Obstructive sleep apnea (adult) (pediatric); E78.5 Hyperlipidemia, unspecified; E11.51 Type 2 diabetes mellitus with diabetic peripheral angiopathy without gangrene; I73.9 Peripheral vascular disease, unspecified; I25.10 Atherosclerotic heart disease of native coronary artery without angina pectoris; F17.210 Nicotine dependence, cigarettes, uncomplicated; Z95.0 Presence of cardiac pacemaker; Z79.4 Long term (current) use of insulin; Z79.899 Other long term (current) drug therapy; Z82.49 Family history of ischemic heart disease and other diseases of the circulatory system

== ENCOUNTER → 2021-01-31 | Outpatient (CLI) | payer OTHER | LOC: SJCVCIMAG 08:50 | PROVIDERS: ATTEND Internal Medicine | DX: I07.1 Rheumatic tricuspid insufficiency (principal); I25.5 Ischemic cardiomyopathy; I27.20 Pulmonary hypertension, unspecified; E11.9 Type 2 diabetes mellitus without complications ==

== ENCOUNTER 2021-02-22 22:14 | Emergency (ER) | payer OTHER ==
[~2021-02-22] VITALS: Ht 160 cm; Wt 76.2 kg
[2021-02-23 00:17] LABS: ABSOLUTE NEUTROPHILS 5.5 thou/uL (1.4-8.2); BASOPHILS 0.7 % (0.0-2.0); EOSINOPHILS 2.5 % (0.0-3.0); HEMATOCRIT 36.4 % (37.0-47.0); HEMOGLOBIN 12.1 gm/dL (12.0-15.0); MCH 33.5 pg (26.0-34.0); MCHC 33.4 g/dL (28.0-37.0); MCV 100.3 fL (80.0-100.0); MONOCYTES 5.4 % (1.0-8.0); PLATELET COUNT 163 thou/uL (150-400); POLYS 62.4 % (36.0-66.0); RBC 3.63 mil/uL (4.20-5.00); RDW 14.1 % (10.5-14.5); WBC 8.9 thou/uL (4.0-11.0)
[2021-02-23 00:24] LABS: ANION GAP 8 mmol/L (7-16); BUN 33 mg/dL (7-18); CALCIUM 10.5 mg/dL (8.5-10.1); CHLORIDE 106 mmol/L (98-107); CO2 26 mmol/L (21-32); CREATININE 1.9 mg/dL (0.6-1.0); GLUCOSE 354 mg/dL (74-106); POTASSIUM 4.3 mmol/L (3.5-5.1); SODIUM 140 mmol/L (136-145)
[2021-02-23 00:36] LABS: ALBUMIN 3.3 g/dL (3.4-5.0); LIPASE 52 U/L (73-393); SGOT 22 U/L (15-37); SGPT 39 U/L (14-59); TOTAL BILIRUBIN 0.4 mg/dL (0.2-1.0); TROPONIN-I <0.06 ng/mL (<0.06)
[2021-02-23] MEDS ORDERED: PROMETHAZINE-C473 ML PO (01:17)
[2021-02-23 02:02] VITALS: BP 95/65
--- NOTE | 2021-02-24 09:26 | EKG ---
[place] [address] [facility] [employer] [place] [address] ELECTROCARDIOGRAM REPORT Name: SANDRA SERRANO Room #: [facility]#: [id number] Admission: 02/22/21 Attend Phys: Discharge: 02/23/21 Date of : 61 Report #: [id number] [facility] ED Test Date: 2021-02-22 Test Time: 22:19:13 Pat Name: SANDRA SERRANO Department: Room: Gender: F Travel Coordinator: selma : 1965 Requested By: Juan Jose Nathan Order Number: [id number] MD: Brian Contreras Measurements Intervals [place] Rate: 100 P: 59 VT: 157 QRS: -36 QRSD: 94 T: 54 QT: 348 QTc: 449 Interpretive Statements Sinus tachycardia Probable left atrial enlargement Left axis deviation Anterior infarct, old Compared to ECG 01/16/2021 07:07:23 No significant changes Electronically Signed On 02-24-2021 9:25:49 CDT by Brian Contreras [email or web address] <ELECTRONICALLY SIGNED> By: Brian Contreras MD, [facility] 02/24/21 0925 18 Brian Contreras MD, FACC /EPI
== END 2021-02-23 02:16 | disposition home or self-care (01) ==
LOC: ER 22:14
PROVIDERS: Emergency Medicine
DX: N17.9 Acute kidney failure, unspecified (principal); Z20.822 Contact with and (suspected) exposure to COVID-19; R07.89 Other chest pain; E11.9 Type 2 diabetes mellitus without complications; J44.9 Chronic obstructive pulmonary disease, unspecified; I11.0 Hypertensive heart disease with heart failure; I50.9 Heart failure, unspecified; E78.00 Pure hypercholesterolemia, unspecified; Z79.2 Long term (current) use of antibiotics; Z79.82 Long term (current) use of aspirin; Z79.4 Long term (current) use of insulin; Z79.899 Other long term (current) drug therapy; Z87.891 Personal history of nicotine dependence

== ENCOUNTER 2021-04-17 19:43 | Emergency (ER) | payer OTHER ==
[~2021-04-17] VITALS: Ht 160 cm; Wt 76.2 kg
[~2021-04-17 19:43] MED LIST changes: +PROMETHAZINE-C473 ML PO
[2021-04-17 21:46] VITALS: BP 104/69
== END 2021-04-17 21:57 | disposition home or self-care (01) ==
LOC: ER 19:43
DX: L02.211 Cutaneous abscess of abdominal wall (principal); I11.0 Hypertensive heart disease with heart failure; I50.9 Heart failure, unspecified; E11.9 Type 2 diabetes mellitus without complications; E78.00 Pure hypercholesterolemia, unspecified; Z79.82 Long term (current) use of aspirin; Z79.4 Long term (current) use of insulin; Z79.899 Other long term (current) drug therapy; Z87.891 Personal history of nicotine dependence

== ENCOUNTER → 2021-05-17 | Outpatient (CLI) | payer OTHER | LOC: RAD 10:01 | PROVIDERS: ATTEND Family Medicine | DX: M75.101 Unspecified rotator cuff tear or rupture of right shoulder, not specified as traumatic (principal); M19.011 Primary osteoarthritis, right shoulder; M85.88 Other specified disorders of bone density and structure, other site ==

== ENCOUNTER → 2021-06-28 | Day surgery (SDC) | payer OTHER ==
[~2021-06-28] VITALS: Ht 160 cm; Wt 77.1 kg
[~2021-06-28] MED LIST changes: +NOVOLOG FL100 UNIT/M; +TIZANIDINE HCL4 M2 PO; +TRELEGY ELLIPT1 EACH INH
--- NOTE | ~2021-06-28 | O ---
[facility] [place] [address] OPERATIVE REPORT Name: SANDRA SERRANO Room #: [facility] [place] M.R.#: [id number] Admission: 06/28/21 Attend Phys: Edward Muir Discharge: Date of : 61 Report #: [id number] THIS REPORT FOR: cc: Scar Padron James A. DO VanDenBerghe, Gregory R. MD ~ DATE OF SERVICE: 06/28/2021 PREOPERATIVE DIAGNOSES: Right shoulder pain, rotator cuff tear, glenohumeral joint osteoarthritis, acromioclavicular joint arthrosis, biceps tendinopathy. POSTOPERATIVE DIAGNOSES: Right shoulder pain, large rotator cuff tear, grade 4 chondromalacia of the glenoid, grade 2 chondromalacia of humeral head, long head of the biceps tendon tear, complex labral tear, subacromial bursitis, acromioclavicular joint arthrosis. PROCEDURES PERFORMED: Right shoulder arthroscopy, rotator cuff repair, excision of distal clavicle, extensive debridement, biceps tenotomy. SURGEON: Edward Dumont MD MANAGER MARKET DEVELOPMENT: Connie Valentin PA-C ANESTHESIA: General with preoperative ultrasound-guided interscalene block by Dr. Hannah Sahu. FLUIDS: 400 mL crystalloid. ESTIMATED BLOOD LOSS: Less than 5 mL DESCRIPTION OF PROCEDURE: After proper identification of the patient and the operative site in preoperative holding area, the operative site was signed by myself. Prophylactic antibiotics given. The patient reviewed the anesthetic options with Dr. Sahu and also elected for an interscalene block. After satisfactory ultrasound-guided interscalene block, the patient was brought back to the operative suite after induction of satisfactory general anesthesia per LMA. She was carefully positioned in the left lateral decubitus position. Beanbag and axillary roll were utilized to support the torso. The right shoulder was then sterilely prepped and draped in the usual manner. The limb was placed in 10 pounds of balanced arthroscopic suspension. A posterior portal was established and joint was inflated with an arthroscopic pump set at 40 mmHg. An anterior-superior portal was then created using a spinal needle for localization. Examination of the glenohumeral joint revealed extensive long head of the biceps tendon tear. Biceps tendon when brought into the joint demonstrated high-grade tearing of the bicipital groove. The upper border of the subscapularis was intact as well as the remainder of the subscapularis. [address] [address] OPERATIVE REPORT Name: SANDRA SERRANO Room #: REG [facility] Sridevi#: [id number] Admission: 06/28/21 Attend Phys: Edward Muir Discharge: Date of : 61 Report #: [id number] This was a complete tear of the supraspinatus and infraspinatus and frayed portion of the cuff was debrided from the articular side. The patient demonstrated complex labral tearing and a tendon grasping stitch was placed on the biceps, it was released off the superior labrum, and then the frayed and torn labrum was debrided circumferentially. The glenoid had chondral lesions noted with the anterior-inferior quadrant demonstrating near full-thickness chondral loss with some spotty areas of more fibrous chondral tissue in this region. The anterior-superior labrum demonstrated complex tearing. There was fibrillated chondral tissue and loose chondral flaps noted on the periphery of the glenoid chondral lesion and this area was carefully debrided with a motorized shaver. The more posterior-inferior labrum demonstrated some mild fraying and tearing as well, which was debrided with a motorized shaver. There were two separate areas of chondral thinning on the humeral head, one more inferior and one more superior. Full-thickness rotator cuff tear involving the supraspinatus and infraspinatus was noted. After the articular-sided debridement had been performed, the arthroscope was introduced into the subacromial space and a very thickened subacromial bursa was encountered. It was resected for visualization purposes. There was mild fraying on the undersurface of the coracoacromial arch. This was carefully debrided with a radiofrequency ablator. Acromioclavicular joint arthrosis was noted and a distal clavicle excision was performed with a motorized bur. Approximately 10 mm of bone was resected in this area and a grasper was opened within the acromioclavicular joint, demonstrating the excision. Bony debris was carefully removed. At this point, the patient had a large rotator cuff tear that involved the complete supraspinatus and infraspinatus-type tear and the sharp ring curette and motorized shaver were used to prepare the greater tuberosity. Frayed portion of the cuff was debrided. An [employer]threx SpeedBridge system was utilized with two medial row anchors being inserted. These had the FiberTapes cut and passed individually in a horizontal mattress fashion as well as the sutures. The suture pairs were crossed and lateral row fixation was utilized after the second anchor had been placed more posterior than the first. The #2 FiberWires were passed more in a margin convergence-type manner and within a pattern that reduced the tear as anatomic as possible, and so these #2 FiberWires were used to close some of the defect that was present. They were reduced to the lateral tuberosity and stable to probing. The distal clavicle excision had been performed with a motorized bur and the 10 mm grasper could easily be opened within the joint space. Care was taken to preserve the superior capsular tissues. Portals were closed with simple nylon stitch. Sterile dressing was applied. The patient was then awakened and transferred to the recovery room in a stable condition. The patient will utilize the sling and abduction pillow for 8 weeks postoperatively. A qualified first aid teacher was utilized throughout the entire procedure to aid [address] [address] OPERATIVE REPORT Name: SANDRA SERRANO Room #: [facility] [place] Son[facility].#: [id number] Admission: 06/28/21 Attend Phys: Edward Muir Discharge: Date of : 61 Report #: [id number] in patient limb positioning, visualization with the arthroscope instrument, suture passage as well as closure and sling and dressing application. By: [id number] Edward Dumont MD /nt
[2021-06-28 11:25] VITALS: BP 106/70
[2021-06-28 14:29] VITALS: BP 106/70
--- NOTE | 2021-06-29 07:14 | EKG ---
[place] [address] [facility] [employer] [place] [address] ELECTROCARDIOGRAM REPORT Name: SANDRA SERRANO Room #: REG [facility]#: [id number] Admission: 06/28/21 Attend Phys: Edward Muir Discharge: Date of : 61 Report #: [id number] [facility] Test Date: 2021-06-28 Test Time: 10:27:05 Pat Name: SANDRA SERRANO Department: Room: Gender: F Food And Nutrition Services Assistant: OXANA : 1965 Requested By: Edward Dumont Order Number: [id number] MD: Shreyas Mohamud Measurements Intervals [place] Rate: 82 P: 71 NM: 185 QRS: -29 QRSD: 89 T: 58 QT: 379 QTc: 443 Interpretive Statements Sinus rhythm Borderline left axis deviation Low voltage, precordial leads Consider anterior infarct Compared to ECG 02/22/2021 22:19:13 Low QRS voltage now present Sinus tachycardia no longer present Myocardial infarct finding still present Electronically Signed On 06-29-2021 7:14:03 CHAIN DYER by Shreyas Mohamud [email or web address] <ELECTRONICALLY SIGNED> By: Shreyas Mohamud MD, [facility] 06/29/21 0714 1027 1027 Shreyas Mohamud MD, [facility] /EPI
== END | disposition home or self-care (01) ==
LOC: OR 09:16
PROVIDERS: ATTEND Orthopaedic Surgery Sports Medicine
DX: M25.511 Pain in right shoulder (principal); M75.101 Unspecified rotator cuff tear or rupture of right shoulder, not specified as traumatic; M19.011 Primary osteoarthritis, right shoulder; M94.211 Chondromalacia, right shoulder; S46.111A Strain of muscle, fascia and tendon of long head of biceps, right arm, initial encounter; S43.491A Other sprain of right shoulder joint, initial encounter; M75.51 Bursitis of right shoulder; I11.0 Hypertensive heart disease with heart failure; I50.9 Heart failure, unspecified; E78.00 Pure hypercholesterolemia, unspecified; E11.9 Type 2 diabetes mellitus without complications; I42.9 Cardiomyopathy, unspecified; K21.9 Gastro-esophageal reflux disease without esophagitis; J43.9 Emphysema, unspecified; F17.210 Nicotine dependence, cigarettes, uncomplicated; Z98.890 Other specified postprocedural states; Z79.899 Other long term (current) drug therapy; Z95.0 Presence of cardiac pacemaker; Z20.822 Contact with and (suspected) exposure to COVID-19; X58.XXXA Exposure to other specified factors, initial encounter; Y93.89 Activity, other specified; Y92.89 Other specified places as the place of occurrence of the external cause; Y99.8 Other external cause status
CPT/HCPCS: 50010; 50101; 50172; 50386; 50403; 50597; 50935; 51320; 51847; 52001; 52313; 53610; 56527; 56530; 57103; 58575; 58576; 58577; 58589; 58682; 62110; 62900; 64043; 65060; 70005

== ENCOUNTER 2021-06-29 06:13 | Emergency (ER) | payer OTHER ==
[~2021-06-29] VITALS: Ht 160 cm; Wt 77.1 kg
[2021-06-29 06:51] VITALS: BP 114/72
[2021-06-29 06:52] LABS: ABSOLUTE NEUTROPHILS 7.6 thou/uL (1.4-8.2); BASOPHILS 1.1 % (0.0-2.0); EOSINOPHILS 1.4 % (0.0-3.0); HEMATOCRIT 35.4 % (37.0-47.0); HEMOGLOBIN 11.9 gm/dL (12.0-15.0); LYMPHOCYTES 16.6 % (24.0-44.0); MCH 33.7 pg (26.0-34.0); MCHC 33.7 g/dL (28.0-37.0); MCV 100.1 fL (80.0-100.0); MONOCYTES 6.4 % (1.0-8.0); PLATELET COUNT 154 thou/uL (150-400); POLYS 74.5 % (36.0-66.0); RBC 3.54 mil/uL (4.20-5.00); RDW 13.5 % (10.5-14.5); WBC 10.2 thou/uL (4.0-11.0)
[2021-06-29 07:00] LABS: CALCIUM 10.5 mg/dL (8.5-10.1); CREATININE 1.5 mg/dL (0.6-1.0); POTASSIUM 5.6 mmol/L (3.5-5.1)
[2021-06-29 07:06] LABS: ALBUMIN 3.6 g/dL (3.4-5.0); TOTAL PROTEIN 8.1 g/dL (6.4-8.2)
[2021-06-29 07:13] LABS: TOTAL BILIRUBIN 0.7 mg/dL (0.2-1.0)
--- NOTE | 2021-06-29 07:14 | EKG ---
[facility] [place] [address] ELECTROCARDIOGRAM REPORT Name: SANDRA SERRANO Room #: REG [facility]#: [id number] Admission: 06/29/21 Attend Phys: Discharge: Date of : 61 Report #: [id number] [facility] ED Test Date: 2021-06-29 Test Time: 06:46:21 Pat Name: SANDRA SERRANO Department: Room: Gender: F Train Brakeman: deepali : 1965 Requested By: Scar Mitchell Order Number: [id number] MD: Shreyas Mohamud Measurements Intervals [place] Rate: 96 P: 77 PA: 182 QRS: -33 QRSD: 86 T: 65 QT: 345 QTc: 436 Interpretive Statements Sinus rhythm Probable left atrial enlargement Left axis deviation Low voltage, precordial leads Consider anterior infarct Baseline wander in lead(s) II,III,aVR,aVF Compared to ECG 06/28/2021 10:27:05 No significant changes Electronically Signed On 06-29-2021 7:14:35 CHANGE MANAGEMENT DIRECTOR by Shreyas Mohamud [email or web address] <ELECTRONICALLY SIGNED> By: Shreyas Mohamud MD, [facility] 06/29/21713 5 5 Shreyas Mohamud MD, [facility] /EPI
== END 2021-06-29 10:03 | disposition home or self-care (01) ==
LOC: ER 06:13
PROVIDERS: Emergency Medicine
DX: M25.511 Pain in right shoulder (principal); E87.5 Hyperkalemia; E11.9 Type 2 diabetes mellitus without complications; J44.9 Chronic obstructive pulmonary disease, unspecified; I11.0 Hypertensive heart disease with heart failure; I50.9 Heart failure, unspecified; E78.00 Pure hypercholesterolemia, unspecified; Z87.891 Personal history of nicotine dependence; Z79.899 Other long term (current) drug therapy; Z79.82 Long term (current) use of aspirin; Z98.890 Other specified postprocedural states

== ENCOUNTER 2021-07-22 13:22 | Inpatient (IN) | payer OTHER ==
[~2021-07-22] VITALS: Ht 160 cm; Wt 76.7 kg
[2021-07-22 13:23] VITALS: BP 122/74
[2021-07-22 14:23] LABS: ABSOLUTE NEUTROPHILS 6.8 thou/uL (1.4-8.2); BASOPHILS 0.5 % (0.0-2.0); EOSINOPHILS 2.1 % (0.0-3.0); HEMATOCRIT 30.3 % (37.0-47.0); HEMOGLOBIN 10.4 gm/dL (12.0-15.0); LYMPHOCYTES 26.4 % (24.0-44.0); MCH 33.8 pg (26.0-34.0); MCHC 34.2 g/dL (28.0-37.0); MCV 98.8 fL (80.0-100.0); MONOCYTES 5.5 % (1.0-8.0); PLATELET COUNT 180 thou/uL (150-400); POLYS 65.5 % (36.0-66.0); RBC 3.07 mil/uL (4.20-5.00); RDW 13.5 % (10.5-14.5); WBC 10.3 thou/uL (4.0-11.0)
[2021-07-22 14:30] LABS: CALCIUM 10.8 mg/dL (8.5-10.1); CREATININE 2.1 mg/dL (0.6-1.0); POTASSIUM 5.3 mmol/L (3.5-5.1)
[2021-07-22 14:36] LABS: ALBUMIN 3.4 g/dL (3.4-5.0); MAGNESIUM 1.9 mg/dL (1.8-2.4); TOTAL BILIRUBIN 0.3 mg/dL (0.2-1.0); TOTAL PROTEIN 7.5 g/dL (6.4-8.2)
[2021-07-22 18:32] VITALS: BP 101/63
[2021-07-22 20:00] VITALS: BP 108/67
[2021-07-23 04:00] VITALS: BP 115/76
[2021-07-23 06:09] LABS: HEMATOCRIT 28.2 % (37.0-47.0); HEMOGLOBIN 9.3 gm/dL (12.0-15.0); MCHC 32.9 g/dL (28.0-37.0); MCV 100.5 fL (80.0-100.0); RBC 2.81 mil/uL (4.20-5.00); RDW 13.4 % (10.5-14.5); WBC 7.6 thou/uL (4.0-11.0)
[2021-07-23 06:47] LABS: CALCIUM 10.8 mg/dL (8.5-10.1); CREATININE 1.5 mg/dL (0.6-1.0); POTASSIUM 4.6 mmol/L (3.5-5.1)
[2021-07-23 08:37] VITALS: BP 98/62
[2021-07-24 03:23] VITALS: BP 98/62
--- NOTE | 2021-07-24 03:27 | NUR ---
PT AMBULATING TO BATHROOM INDEPENDENTLY AND IS TOLERATING WELL. PERCOCET PROVIDING PAIN RELIEF. PLAN FOR EGD AND COLONOSCOPY 07/24. RESTING COMFORTABLY. NO NEEDS VOICED. CALL LIGHT WITHIN REACH. FRQUENT OBSERVATION.
--- NOTE | 2021-07-24 08:03 | NUR ---
NIGHT RN REPORTED THAT PT IS REFUSING SLIDING SCALE INSULIN. TRIED TO TALK TO PT ABOUT INSULOIN THIS AM AND SHE STARTED CURSING AT ME AND CALLED ME A MOTHER FUCKER. I INFORMED PT THAT I WOULD RETURN TO ROOM LATER AND LET HER CALM DOWN. WILL CONTINUE TO ASSESS.
[2021-07-24 11:33] LABS: HEMOGLOBIN 8.7 gm/dL (12.0-15.0); MCH 33.3 pg (26.0-34.0); MCHC 33.6 g/dL (28.0-37.0); MCV 99.1 fL (80.0-100.0); RBC 2.62 mil/uL (4.20-5.00)
[2021-07-24 11:43] LABS: CALCIUM 10.9 mg/dL (8.5-10.1); CREATININE 1.2 mg/dL (0.6-1.0); POTASSIUM 4.1 mmol/L (3.5-5.1)
--- NOTE | 2021-07-24 13:01 | NUR ---
PT WAS ABLE TO CALM DOWN TODAY HOWEVER BECAME UPSET WHEN SHE WAS INFORMED THAT HER GI PROCEDURE WOULD NOT HAPPEN UNTIL LATER THIS AFTERNOON. ALICJA CUADRAPOLITICAL SCIENCE FACULTY MEMBER CAME TO PT'S ROOM TO EXPLAIN WHY PROCEDURE DID NOT HAPPEN THIS AM SHE WANTED. PT LEFT UNIT FOR GI PROCEDURE AT 1310 TODAY.
--- NOTE | 2021-07-24 16:57 | NUR ---
SAMAN REPORTR GIVEN TO 4S RN AT NURSING UNIT.
--- NOTE | 2021-07-24 17:39 | NUR ---
PAGED DR. KASPER AND DR. DINH TO SEE IF PT CAN HAVE A DIET ORDER S/P GI PROCEDURE.
[2021-07-24 21:35] VITALS: BP 126/66
--- NOTE | 2021-07-24 21:50 | NUR ---
PATIENT WAS AGGITATED AT START OF SHIFT SINCE HER HOME MEDS HAD NOT BEEN CONTINUED. THIS RN REACHED OUT TO THE ONCALL POWERPLANT OPERATOR TO RESTART THEM. MEDS REVIEWED AND RESTARTED BY POWERPLANT OPERATOR. THIS RN WENT TO GIVE MEDS SCHEDULED AT THIS TIME PT INFORMED ME THAT SHE HAS ALREADY TAKEN THEN. WHEN QUESTIONED WHERE SHE GOT THEM SHE STATED HER "S.O. GAVE THEM TO HER EARLIER SINCE NO ONE DOES ANYTHING". PT DENIES HAVING OTHER MEDICATION ON HER. PT EDUCATED ABOUT HOSPITAL POLICY AND POTENTIAL CONSIQUENCES OF MIXING MEDICATION- NO EVIDENCE OF LEARNING. MEDS MARKED NOT GIVEN ON EMAR WITH A NOTE
[2021-07-25 04:12] LABS: HEMATOCRIT 24.3 % (37.0-47.0); HEMOGLOBIN 8.2 gm/dL (12.0-15.0); MCH 33.7 pg (26.0-34.0); MCHC 33.9 g/dL (28.0-37.0); MCV 99.6 fL (80.0-100.0); RBC 2.44 mil/uL (4.20-5.00); RDW 13.3 % (10.5-14.5)
[2021-07-25 08:02] VITALS: BP 112/67
--- NOTE | 2021-07-25 10:55 | NUR ---
ASSUMED CARE OF PT AT 0700 THIS MORNING. PT IS A/OX4 AND STATED SHE WAS ANXIOUS AND NEEDS HER DIAZEPAM. PT'S HGB WAS AT 8.2 AND NOTIFIED GI ABOUT THE DROP. ASSESSMENTS NOTED IN CHART AND OTHERWISE UNREMARKABLE. PT IS UP INDEP AND HAS NO NEED FOR FALL PRECAUTIONS. CALL LIGHT AND OTHER NEEDS ARE IN REACH. MEDS AND TX GIVEN NEEDED AND SCHEDULED. PT IS WANTING TO BE DISCHARGED TODAY AND WAITING FOR DR. DINH TO CHECK ON PT. GI WOULD LIKE PT TO STAY ONE MORE DAY. WILL CONTINUE TO MONITOR AND NOTE ANY CHANGES.
--- NOTE | 2021-07-25 13:18 | NUR ---
ORDERS RECEIVED FOR PT EVAL AND TREAT. Pt HAS BEEN UP AD JUANA IN ROOM. WAS SITTING AT EOB UPON PT ARRIVAL. DECLINED NEED FOR ACUTE PT AT THIS TIME. HAS HELP AT HOME IF NEEDED AT D/C. PLAN IS TO RETURN TO OP PT HERE FOR R ROTATOR CUFF WHICH SHE HAD REPAIRED ON 06/28/21. NO ACUTE PT CONCERNS. ACUTE PT TO SIGN OFF.
[2021-07-25] MEDS ORDERED: PROMETHAZINE-C473 ML PO (13:30)
[2021-07-25 13:44] VITALS: BP 112/67
[2021-07-25] MEDS ORDERED: GUAIFEN-CODEINE10 ML PO (17:21)
== END 2021-07-25 14:34 | disposition home or self-care (01) | DRG 378 ==
LOC: ER 13:22 → 4S 17:03 → EROBS 17:03 → 4S 07-24 16:41
PROVIDERS: Emergency Medicine; Nurse Practitioner; ADMIT Internal Medicine; ATTEND Internal Medicine
PROC: 0W3P8ZZ Control Bleeding in Gastrointestinal Tract, Via Natural or Artificial Opening Endoscopic (ICD-10-PCS; principal; 2021-07-22)
PROC: 0DJ08ZZ Inspection of Upper Intestinal Tract, Via Natural or Artificial Opening Endoscopic (ICD-10-PCS; principal; 2021-07-22)
DX: K55.21 Angiodysplasia of colon with hemorrhage (principal); D62 Acute posthemorrhagic anemia; I42.9 Cardiomyopathy, unspecified; N17.9 Acute kidney failure, unspecified; K57.31 Diverticulosis of large intestine without perforation or abscess with bleeding; J44.9 Chronic obstructive pulmonary disease, unspecified; E11.9 Type 2 diabetes mellitus without complications; I50.9 Heart failure, unspecified; E78.00 Pure hypercholesterolemia, unspecified; F17.210 Nicotine dependence, cigarettes, uncomplicated; E66.01 Morbid (severe) obesity due to excess calories; G47.33 Obstructive sleep apnea (adult) (pediatric); I25.10 Atherosclerotic heart disease of native coronary artery without angina pectoris; E78.5 Hyperlipidemia, unspecified; Z20.822 Contact with and (suspected) exposure to COVID-19; I11.0 Hypertensive heart disease with heart failure; Z79.4 Long term (current) use of insulin; Z95.5 Presence of coronary angioplasty implant and graft; Z95.0 Presence of cardiac pacemaker; Z68.29 Body mass index [BMI] 29.0-29.9, adult; Z79.82 Long term (current) use of aspirin; Z79.899 Other long term (current) drug therapy
CPT/HCPCS: 10100; 62110; 62900; 70005